=== PATIENT | male | born 1960 | race Caucasian/White ===

== ENCOUNTER 2021-02-20 20:45 | Emergency (ER) | payer OTHER ==
--- OUTSIDE RECORDS SUMMARY | 2021-02-20 20:49 | XMS REPORT | Continuity of Care Document ---
:1960 Author Organization [facility] t Address 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 History of History of Problem Resolve Univers hyperlipid hyperlipid d it y of [place] Physici ans History of History of Problem Resolve Univers hypertensi hypertensi d it y of on on [place] Physici ans History of History of Problem Resolve Univers neuropathy neuropathy d it y of [place] Physici ans Weakness Weakness Problem Active Unive rs of both of both ity of [place] extremitie extremitie Ph ysici s s ans Subjective Subjective Problem Active U nivers muscle muscle ity of weakness weakness [place] Physici ans Allergies, Adverse Reactions, Alerts Allergy Allergy Status Severity Reaction(s) Onset Inactive Treating Comm ents Source Name Type Date Date Clinician [place] drug Active Univers Inhibito allergy ity of rs [place] Physici ans codeine drug Active Univers allergy ity of [place] Physici ans Levaquin drug Active Univers allergy ity of [place] Physici ans Family History Family Member Diagnosis Comments Start Date Stop Date Source Mother Family history of Univers ity of [place] Patient denies Physicians medical problems Father Family history of Univers ity of [place] Patient denies Physicians medical problems Social History Social Habit Start Date Stop Date Quantity Comments Source Sex Assigned At [birth year] [facility] 00:00:00 00:00:00 Smoking Status Start Date Stop Date Source Never smoker [facility] Physicians Unknown if ever smoked [facility] Medications This patient has no known medications. Vital Signs Vital Name Observation Time Observation Value Comments Source BP Systolic 2018-09-01 139 mm[Hg] Location: [facility] 14:13:00 Position: [place] Physician s Sitting BP Diastolic 2018-09-01 89 mm[Hg] Location: [facility] 14:13:00 Position: [place] Physician s Sitting Height 2018-09-01 71 [in_us] [facility] 14:13:00 [place] [facility] s Weight 2018-09-01 217.6 [lb_av] [facility] 14:13:00 [place] [facility] Body Mass Index 2018-09-01 30.35 kg/m2 [facility] Calculated 14:13:00 [place] [facility] Temperature 2018-09-01 97.5 [degF] Method: Oral [facility] 14:13:00 [place] [facility] Heart Rate 2018-09-01 70 /min [facility] 14::00 [place] [facility] Procedures Procedure Date / Time Performed Performing Clinician Sourc e [QLH] C-REACTIVE 2018-09-01 00:00:00 [facility] PROTEIN Physicians [[facility]] CREATINE KINASE, 2018-09-01 00:00:00 [facility] TOTAL Physicians [[facility]] SED RATE BY 2018-09-01 00:00:00 [facility] MODIFIED AYAAN Physicians History of Coronary [facility] [place] artery bypass graft Physicians Plan of Care Planned Activity Planned Date Details Comments Source Future Scheduled Test COVID-19 VACCINE (1) [facility] [code = COVID-19 VACCINE (1)] Future Scheduled Test Hepatitis C screening [facility] (procedure) [code = [id number]] Future Scheduled Test COLONOSCOPY SCREENING [facility] [code = COLONOSCOPY SCREENING] Future Scheduled Test SHINGLES VACCINES (#1) [facility] [code = SHINGLES VACCINES (#1)] Future Scheduled Test INFLUENZA VACCINE [code [facility] = INFLUENZA VACCINE] Encounters Start End Encounter Admission Attending Care Care Encounter Source Date/Time Date/Time Type Type Clinicians Facility Department ID 2018-12-27 2018-12-27 Outpatient U [facility] [id number] [facility] 14:50:00 14:50:00 2018-09-01 2018-09-01 Appointmen CURTIS DUNHAM Neurology [id number] Univers 14:00:00 14:00:00 t; MELISSA DUNHAM ity of Rudy TORRES M.D. Physici ans Results Test Description Test Time Test Comments Results Result Comments Source CBC with Differential 2017-04-10 01:19:00 Test Item Value Reference Range Interpretation Comme nts WBC (test code = WBC) 5.8 K/cumm 4.4-10.5 N RBC (test code = RBC) 4.59 M/cumm 4.10-5.70 N Hemoglobin (test code = HGB) 13.9 gm/dL 13.4-17.4 N Hematocrit (test code = HCT) 45.7 % 38.7-52.0 N MCV (test code = MCV) 99.7 fL 80-100 N MCH (test code = MCH) 30.4 pg 27.0-32.5 N MCHC (test code = MCHC) 30.5 g/dL 32.0-37.5 L RDW (test code = RDW) 14.5 % 11.5-14.5 N Platelet Count (test code = PLTCT) 201 K/cumm 140-440 N MPV (test code = MPV) 10.2 fL Diff Method (test code = DIFFM) Manual Neutrophil (test code = NEUT) 56.9 % 36-70 N Lymphocyte (test code = LYMPH) 24.4 % 12-44 N Monocyte (test code = MONO) 16.3 % 0-11 N Eosinophil (test code = EOS) 1.8 % 0-7 N Basophil (test code = BASO) 0.7 % 0-2 N Neutro Abs (test code = ANEUT) 3.30 K/cumm 1.6-7.4 N Lymph Abs (test code = ALYMPH) 1.4 K/cumm 0.5-4.6 N [place] Abs (test code = AMONO) 0.94 K/cumm 0.0-1.2 N Eos Abs (test code = AEOS) 0.10 K/cumm 0.00-0.74 N Baso Abs (test code = ABASO) 0.04 K/cumm 0.00-0.21 N RBC Morphology (test code = RBCMRPH) Not Indicated Platelet Est (test code = PLTEST) Adequate Platelets on Smear Testosterone, [id number] 23:24:00 Test Item Value Reference Range Interpretation Comments Testosterone, Total (test code = 2.12 ng/mL 2.80-8.00 L TESTOS) Thyroid Stimulating Hormone (TSH)2017-04-09 23:24:00 Test Item Value Reference Range Interpretation Comments TSH (test code = TSH) 1.90 mIU/mL 0.270-4.200 N Comprehensive Metabolic [id number] 23:16:00 Test Item Value Reference Range Interpretation Comments Sodium (test code = 138 mmol/L 135-145 N NA) Potassium (test 3.9 mmol/L 3.5-5.1 N code = K) Chloride (test code 104 mmol/L 98-105 N = CL) Carbon Dioxide 21 mmol/L 22-29 L (test code = CO2) Glucose (test code 144 mg/dL 70-115 H = GLU) Blood Urea Nitrogen 16 mg/dL 6-20 N (test code = BUN) Creatinine (test 1.1 mg/dL 0.7-1.2 N code = CREAT) Calcium (test code 8.8 mg/dL 8.3-10.5 N = CA) Prot Total (test 6.3 g/dL 6.4-8.3 L code = TP) Albumin (test code 4.2 g/dL 3.5-5.2 N = ALB) A/G Ratio (test 2.0 Ratio code = AGRATIO) Globulin (test code 2.1 2.9-3.1 L = GLOB) Bili Total (test 0.3 mg/dL 0.1-0.9 N code = TBIL) Alk Phos (test code 106 U/L 40-129 N = APHOS) AST (test code = 19 U/L 1-40 N AST) ALT (test code = 16 U/L 1-41 N ALT) BUN/Creatinine 14.5 Ratio (test code = BCRATIO) Anion Gap (test 13 mmol/L 7-16 N code = AGAP) Estimated GFR (test >60 eGFR (es timated code = GFR) mL/min/1.73m2 Glomerular Arsenio tration Rate) is an est imated value,calculate d from the patient's s matthew creatinine usin g the MDRD equation.I t is NOT the patient 's actual GFR. The eGFR provides a more clinicallyusefu l measure of kidn ey disease than se rum creatinine alone.This calculation judit es sex and race into account, if the informationis provided. If th e race is not provided , and the patient isAfrican-Ameri can, multiply by 1.2 12. If sex is not prov ided, and thepatient is female, multipl y by 0.742. Results for patients <18 ye ars ofage have not been validated by e MDRD study and paolo d be interpretedwith caution.eGFR Re sult Interpretation: eGFR > or = 60 is in t he Normal RangeeGF R < 60 may mean kidney diseaseeGFR < 1 5 may mean kidney failureRange s recommended by the National Kidney Foundation,http ://nkd ep.nih.gov Lipid [id number] 21:47:00 Test Item Value Reference Range Interpretation Comments Cholesterol (test 183 mg/dL 0-200 N code = CHOL) Triglycerides (test 135 mg/dL 9-200 N code = TRIG) HDL (test code = 51 mg/dL 40-60 N HDL) Chol/HDL (test code 3.6 Ratio 0.0-5.0 N = CHOLPHDL) LDL, Calculated 105 mg/dL 0-130 N (NOTE)RISK O F HEART (test code = LDLC) DISEASEPu blished by [place] Heart AssociationAnal yte Optim al Boderline Increased RiskC HOL <200 200-239 >240TRI G <150 150-199 >200HDL Male: >60 <40HDL Female: >60 <50 LDL < 100 130-15 9 >160 LDL NEAR OPTIMAL IS 100- 129 VLDL (test code = 27 mg/dL 5-40 N VLDL) LDL/HDL (test code = 2 LDLPHDL) Sed Rate ESR ([place])2016-10-15 01:06:00 Test Item Value Reference Range Interpretation Comments ESR (test code = HESR) 4 mm/Hr 0-9 N Thyroid Stimulating Hormone (TSH)2016-10-15 00:33:00 Test Item Value Reference Range Interpretation Comments TSH (test code = TSH) 2.01 mIU/mL 0.270-4.200 N CK [id number] 00:33:00 Test Item Value Reference Range Interpretation Comments CK (test code = CK) 64 U/L 39-308 N CKMB (test code = CKMB) 2.2 ng/mL 0.0-4.9 N CKMB% (test code = CKMBP) 3.4 % 0.0-3.4 N CK [id number] 00:22:00 Test Item Value Reference Range Interpretation Comments CK (test code = CK) 64 U/L 39-308 N
--- NOTE | 2021-02-20 22:25 | RAD REPORT ---
EXAM DESCRIPTION: RAD - Chest Single View - 02/20/2021 10:00 pm CLINICAL HISTORY: pale, hypotensive COMPARISON: Chest Pa And Lat (2 Views) dated 10/05/2015 FINDINGS: Lines: None. Lungs: No evidence of edema or pneumonia. Pleural: No significant pleural effusions or pneumothorax. Cardiac: The heart size is within normal limits. Bones: No acute fractures. Sternotomy. Other: Surgical clips in left upper quadrant. IMPRESSION: No acute cardiopulmonary disease.
[2021-02-20] MEDS ORDERED: ACETAMINOPHEN 500 MG TAB ONE (22:42)
[2021-02-20] MEDS ORDERED: NA CHLORIDE 0.9% 1,000 ML ONE (22:44)
[2021-02-20 23:31] LABS: Absolute Lymphocytes (CBC) 0.4 K/uL (0.7-4.9); Basophils % 0.2 % (0-1.3); Hematocrit 38.4 % (39.6-49.0); Lymphocytes % 3.2 % (15.3-44.8); MPV 8.9 fL (7.6-11.3); RBC Red Blood Cell Count 4.45 M/uL (4.33-5.43)
[2021-02-20 23:33] LABS: Protime INR 1.21
[2021-02-20 23:42] LABS: Albumin 3.7 g/dL (3.4-5.0); Alkaline Phosphatase 273 U/L (45-117); BUN Blood Urea Nitrogen 23 mg/dL (7-18); Bicarbonate 23 mmol/L (21-32); Bilirubin Direct 2.5 mg/dL (0-0.2); Bilirubin Total 3.5 mg/dL (0.2-1.0); Glucose Level 158 mg/dL (74-106); Magnesium 1.5 mg/dL (1.8-2.4); NT PRO-BNP 861 pg/mL (<125); Potassium 3.9 mmol/L (3.5-5.1); Protein, Total 7.3 g/dL (6.4-8.2); Sodium Level 134 mmol/L (136-145); Troponin (Emerg Dept Use Only) < 0.02 ng/mL (0.0-0.045)
[2021-02-20 23:46] LABS: ALT/SGPT 425 U/L (12-78); AST/SGOT 438 U/L (15-37)
[2021-02-21] MEDS ORDERED: NA CHLORIDE 0.9% 1,000 ML ONE ×2 (00:26→03:16)
[2021-02-21] MEDS ORDERED: Magnesium Sulfate 2gm IVPB 2 G/50 ML BAG IV ONE (00:26)
[2021-02-21] MEDS ORDERED: PIPER/TAZO/NS 3.375gm 3.375 GM/100 ML BAG ONE (01:29)
--- NOTE | 2021-02-21 02:45 | ER ---
Nurse's Notes [facility] Name: Luis Menjivar Age: 60 yrs Sex: Male : 1960 Arrival Date: 02/20/2021 Time: 20:50 Bed 19 Private MD: Diagnosis: Calculus of bile duct with acute cholecystitis with obstruction;Fever presenting with conditions classified elsewhere Presentation: 02/20 21:11 Chief complaint: Patient states: Pt states he has neuropathy and has pain in his wg shoulders, ankles and other joints. States he was taken off his medication and has been feeling this way for 2 weeks. Pt states he also received 3 units of blood several months ago for GI bleeding. Pt reports no S/S of bleeding but appears pale. Coronavirus screen: Vaccine status: Patient reports receiving the 2nd dose of the covid vaccine. Date January 07, 2021 Client denies travel out of the [place] in the last 14 days. At this time, the client does not indicate any symptoms associated with coronavirus-19. Ebola Screen: Patient negative for fever greater than or equal to 101.5 degrees Fahrenheit, and additional compatible Ebola Virus Disease symptoms Patient denies exposure to infectious person. Patient denies travel to an Ebola-affected area in the 21 days before illness onset. No symptoms or risks identified at this time. Risk Assessment: Do you want to hurt yourself or someone else? Patient reports no desire to harm self or others. 21:11 Method Of Arrival: Ambulatory 21:11 Acuity: MADDIE 3 Triage Assessment: 21:17 The onset of the patients symptoms was February 04, 2021 at 12:00. General: Appears wg uncomfortable, well developed, well nourished, Behavior is calm, cooperative, appropriate for age. Pain: Pain currently is 7 out of 10 on a pain scale. Quality of pain is described as aching, Pain began 2 weeks ago. EENT: No deficits noted. Neuro: Reports pain in his joints.. Cardiovascular: skin cool and pale. Respiratory: No deficits noted. GI: No deficits noted. : No deficits noted. Derm: No deficits noted. Musculoskeletal: No deficits noted. Historical: - Allergies: 02/21 02:25 Levaquin; jb4 02:25 [place] INHIBITORS; jb4 - PMHx: 02:25 HTN; cardiac problems; hernia; VKH; neuropathy; jb4 - PSHx: 02:25 hernia repair; triple bypass; jb4 Screenin/08 22:30 Abuse screen: Denies threats or abuse. Nutritional screening: No deficits noted. jb4 Tuberculosis screening: No symptoms or risk factors identified. Fall Risk IV access (20 points). Ambulatory Aid- None/Bed Rest/Nurse Assist (0 pts). Gait- Weak (10 pts.). Mental Status- Oriented to own ability (0 pts). Total Larson Fall Scale indicates Low Risk Score (25-44 pts). Fall prevention measures have been instituted. Side Rails Up X 2 Placed close to Nursing Station Frequent Obs/Assesments occuring Family Present and informed to notify staff if they need to leave bedside As available Patient and Family Educated on Fall Prevention Program and strategies. Assessment: 22:30 General: Appears in no apparent distress. comfortable, Behavior is calm, cooperative. jb4 Pain: Denies pain. Neuro: Level of Consciousness is awake, alert, obeys commands, Oriented to person, place, time, situation. Cardiovascular: Patient's skin is warm and dry. Respiratory: Airway is patent Respiratory effort is even, unlabored, Respiratory pattern is regular, symmetrical. GI: Abdomen is flat, non-distended. : No signs and/or symptoms were reported regarding the genitourinary system. EENT: No signs and/or symptoms were reported regarding the EENT system. Derm: Skin is intact, Skin is dry, Skin is jaundiced, pale. Musculoskeletal: Circulation, motion, and sensation intact. Range of motion: intact in all extremities. 02/21 00:00 Reassessment: Patient appears in no apparent distress at this time. Patient and/or jb4 family updated on plan of care and expected duration. Pain level reassessed. Patient is alert, oriented x 3, equal unlabored respirations, skin warm/dry/pink. 01:00 Reassessment: Patient appears in no apparent distress at this time. Patient and/or jb4 family updated on plan of care and expected duration. Pain level reassessed. Patient is alert, oriented x 3, equal unlabored respirations, skin warm/dry/pink. 02:00 Reassessment: Patient appears in no apparent distress at this time. Patient and/or jb4 family updated on plan of care and expected duration. Pain level reassessed. Patient is alert, oriented x 3, equal unlabored respirations, skin warm/dry/pink. 03:32 Reassessment: Patient appears in no apparent distress at this time. Patient and/or jb4 family updated on plan of care and expected duration. Pain level reassessed. Patient is alert, oriented x 3, equal unlabored respirations, skin warm/dry/pink. Vital Signs: 02/20 21:11 BP 97 / 65; Pulse 120; Resp 18; Temp 98.8; Pulse Ox 99% on R/A; Weight 81.65 kg; Height wg 5 ft. 11 in. (180.34 cm); Pain 7/10; 22:23 BP 91 / 56; Pulse 112; Resp 18 S; Temp 100.2(O); Pulse Ox 98% on R/A; bb 23:30 BP 94 / 65; Pulse 96; Resp 16; Pulse Ox 98% on R/A; jb4 02/21 00:15 BP 89 / 60; Pulse 92; Resp 18; Pulse Ox 98% on R/A; jb4 01:26 BP 97 / 69; Pulse 90; Resp 15; Pulse Ox 100% on R/A; mw2 01:35 Temp 98.6(O); jb4 02:30 BP 105 / 66; Pulse 88; Resp 16; Pulse Ox 99% on R/A; jb4 03:00 BP 97 / 66; Pulse 84; Resp 16; Pulse Ox 99% on R/A; jb4 02/20 21:11 Body Mass Index 25.10 (81.65 kg, 180.34 cm) ED Course: 02/20 20:50 Patient arrived in ED. bp1 21:17 Triage completed. wg 21:17 Arm band placed on left wrist. wg 22:00 XRAY Chest (1 view) In Process Unspecified. EDMS 22:24 Larry Darnell PA is PHCP. jr8 22:24 Jose Guillen MD is Attending Physician. jr8 22:30 Patient has correct armband on for positive identification. Bed in low position. Call jb4 light in reach. Side rails up X 1. Pulse ox on. NIBP on. 22:45 Inserted saline lock: 18 gauge in right forearm, using aseptic technique. Blood jb4 collected. 22:45 Initial lab(s) drawn, by nj, sent to lab. First set of blood cultures drawn by me, jb4 Second set of blood cultures drawn by me. 23:12 Bautista Cantu, RN is Primary Nurse. jb4 02/21 00:44 CT Abd/Pelvis - Without Contrast In Process Unspecified. EDMS 01:12 US Abdomen Limited In Process Unspecified. EDMS 01:20 initiated a transfer with Helene Meléndez from [facility]. mw2 01:57 connected Larry CARRASCO with the doctor from [facility]. mw2 02:24 connected Larry CARRASCO with Dr. Hernandes from [facility]. mw2 02:34 administrative approval given by Helene Meléndez/ patient has been accepted to [address] 10 tower bed 1042/ Dr. Hernandes accepted the patient in transfer/ report to be called to [phone]. 03:32 No provider procedures requiring assistance completed. Patient transferred, IV remains jb4 in place. Administered Medications: 02/20 22:23 Drug: Tylenol 1000 mg Route: PO; bb 22:50 Drug: NS 0.9% 1000 ml Route: IV; Rate: 1000 ml; Site: right forearm; jb4 23:45 Follow up: Response: No adverse reaction; IV Status: Completed infusion; IV Intake: jb4 1000ml 02/21 00:10 Drug: NS 0.9% 1000 ml Route: IV; Rate: 1000 ml; Site: right forearm; jb4 01:10 Follow up: Response: No adverse reaction; IV Status: Completed infusion; IV Intake: jb4 1000ml 00:10 Drug: Magnesium Sulfate 2 grams Route: IVPB; Infused Over: 1 hrs; Site: right forearm; jb4 01:10 Follow up: Response: No adverse reaction; IV Status: Completed infusion; IV Intake: [id number] 01:34 Drug: Zosyn (piperacillin-tazobactam) 3.375 grams Route: IVPB; Infused Over: 60 mins; jb4 Site: right antecubital; 02:34 Follow up: Response: No adverse reaction; IV Status: Completed infusion; IV Intake: jb4 100ml 03:04 Drug: NS 0.9% 1000 ml Route: IV; Rate: 100 ml/hr; Site: right forearm; jb4 03:11 Follow up: Response: No adverse reaction; IV Status: Infusion continued upon transfer jb4 Intake: 02/20 23:45 IV: 1000ml; Total: 1000ml. jb4 02/21 01:10 IV: 50ml; Total: 1050ml. jb4 01:10 IV: 1000ml; Total: 2050ml. jb4 02:34 IV: 100ml; Total: 2150ml. jb4 Outcome: 02:45 ER care complete, transfer ordered by MD. bishop 03:33 Transferred by ground EMS to [facility], Transfer form completed. jb4 X-rays sent w/ patient. 03:33 Condition: stable 03:33 Discharge instructions given to patient, family, Instructed on the need for transfer, Demonstrated understanding of instructions. 03:35 Patient left the ED. jb4 Signatures: Dispatcher [employer] EDMS Page Wright RN RN bb Roszak, Josh, PA PA jr8 Bautista Cantu RN RN jb4 Rajendra Urbina mw2 Raiza Dinero Liam, RN wg Corrections: (The following items were deleted from the chart) 02:37 02:24 connected Larry CARRASCO with Dr. Guzmán from [facility] mw2 mw2 03:35 03:35 Initial Sepsis Screen: Does the patient meet any 2 criteria? jb4 jb4 03:35 03:32 Discharged to home ambulatory, jb4 jb4 03:35 03:32 Condition: stable jb4 jb4 03:35 03:32 Discharge instructions given to patient, Instructed on discharge instructions, jb4 follow up and referral plans. Demonstrated understanding of instructions, follow-up care, jb4 03:38 03:32 IV discontinued, intact, bleeding controlled, No redness/swelling at site. jb4 Pressure dressing applied, jb4
--- NOTE | 2021-02-21 02:46 | EDPHYS ---
Physician Documentation [facility] Name: Luis Menjivar Age: 60 yrs Sex: Male : 1960 Arrival Date: 02/20/2021 Time: 20:50 Bed 19 Private MD: ED Physician Jose Guillen HPI: 02/21 00:54 This 60 yrs old Male presents to ER via Ambulatory with complaints of jr8 Weakness. 00:54 This is a 60-year-old male patient that presented to the emergency room for fevers, jr8 fatigue and weakness, nausea and upper abdominal discomfort. Patient stated that this is been going on for the past week or 2 but getting worse and now running fevers with it. Also has complained of body aches. Patient stated that he has had GI bleed in the past and had to have blood transfusion. Denies having any recent hematemesis, coffee-ground emesis, black tarry stools.. It is unknown whether or not the patient has had similar symptoms in the past. The patient has not recently seen a physician. Historical: - Allergies: 02:25 Levaquin; jb4 02:25 [place] INHIBITORS; jb4 - PMHx: 02:25 HTN; cardiac problems; hernia; VKH; neuropathy; jb4 - PSHx: 02:25 hernia repair; triple bypass; jb4 ROS: 00:54 Cardiovascular: Negative for chest pain, palpitations, and edema, Respiratory: Negative jr8 for shortness of breath, cough, wheezing, and pleuritic chest pain, Back: Negative for injury and pain, MS/Extremity: Negative for injury and deformity, Skin: Negative for injury, rash, and discoloration, Neuro: Negative for headache, weakness, numbness, tingling, and seizure. 00:54 Constitutional: Positive for body aches, fever, malaise. 00:54 Abdomen/GI: Positive for abdominal pain, nausea. Exam: 00:54 Eyes: Pupils equal round and reactive to light, extra-ocular motions intact. Lids and jr8 lashes normal. Conjunctiva and sclera are non-icteric and not injected. Cornea within normal limits. Periorbital areas with no swelling, redness, or edema. ENT: Nares patent. No nasal discharge, no septal abnormalities noted. Tympanic membranes are normal and external auditory canals are clear. Oropharynx with no redness, swelling, or masses, exudates, or evidence of obstruction, uvula midline. Mucous membranes moist. Neck: Trachea midline, no thyromegaly or masses palpated, and no cervical lymphadenopathy. Supple, full range of motion without nuchal rigidity, or vertebral point tenderness. No Meningismus. Cardiovascular: Tachycardic with a normal S1 and S2. No gallops, murmurs, or rubs. Normal PMI, no JVD. No pulse deficits. Respiratory: Lungs have equal breath sounds bilaterally, clear to auscultation and percussion. No rales, rhonchi or wheezes noted. No increased work of breathing, no retractions or nasal flaring. 00:54 Back: No spinal tenderness. No costovertebral tenderness. Full range of motion. MS/ Extremity: Pulses equal, no cyanosis. Neurovascular intact. Full, normal range of motion. Neuro: Awake and alert, GCS 15, oriented to person, place, time, and situation. Cranial nerves II-XII grossly intact. Motor strength 5/5 in all extremities. Sensory grossly intact. 00:54 Constitutional: The patient appears alert, awake, Ill appearing 00:54 Abdomen/GI: Inspection: scar(s), are noted in the Mid abdomen, Bowel sounds: active, all quadrants, Palpation: soft, in all quadrants, mild abdominal tenderness, in the right upper quadrant and left upper quadrant, mass, is not appreciated, rebound tenderness, is not appreciated, voluntary guarding, is not appreciated, involuntary guarding, is not appreciated, no appreciated organomegaly, Indicators: McBurney's point is not tender, Bucio's sign is negative, Rovsing's sign is negative, Liver: tenderness, is not appreciated. 00:54 Skin: Appearance: Color: pale. Vital Signs: 02/20 21:11 BP 97 / 65; Pulse 120; Resp 18; Temp 98.8; Pulse Ox 99% on R/A; Weight 81.65 kg; Height wg 5 ft. 11 in. (180.34 cm); Pain 7/10; 22:23 BP 91 / 56; Pulse 112; Resp 18 S; Temp 100.2(O); Pulse Ox 98% on R/A; bb 23:30 BP 94 / 65; Pulse 96; Resp 16; Pulse Ox 98% on R/A; jb4 02/21 00:15 BP 89 / 60; Pulse 92; Resp 18; Pulse Ox 98% on R/A; jb4 01:26 BP 97 / 69; Pulse 90; Resp 15; Pulse Ox 100% on R/A; mw2 01:35 Temp 98.6(O); jb4 02:30 BP 105 / 66; Pulse 88; Resp 16; Pulse Ox 99% on R/A; jb4 03:00 BP 97 / 66; Pulse 84; Resp 16; Pulse Ox 99% on R/A; jb4 02/20 21:11 Body Mass Index 25.10 (81.65 kg, 180.34 cm) wg MDM: 02/20 22:26 Patient medically screened. 8 02/21 02:01 Data reviewed: vital signs, nurses notes, lab test result(s), radiologic studies, CT jr8 scan, plain films, ultrasound. Data interpreted: Pulse oximetry: on room air is 100 %. Interpretation: normal. Counseling: I had a detailed discussion with the patient and/or guardian regarding: the historical points, exam findings, and any diagnostic results supporting the discharge/admit diagnosis, lab results, radiology results, the need to transfer to another facility, [facility] does not immediately have the required specialist. ED course: Patient with choledocholithiasis, cholelithiasis, fever with upper quadrant pain and elevated liver enzymes. Patient has been placed on antibiotics and resuscitated with fluids. Feeling much better at this time. Discussed with patient that we do not have the ability to do ERCP at this time which is needed. I consulted GI at [facility] who accepted patient.. 02/20 21:21 Order name: Basic Metabolic Panel 02/20 21:21 Order name: CBC with Diff 02/20 21:21 Order name: LFT's 02/20 21:21 Order name: Magnesium; Complete Time: 23:49 02/20 21:21 Order name: NT PRO-BNP; Complete Time: 23:49 02/20 21:21 Order name: Troponin (emerg Dept Use Only); Complete Time: 23:49 02/20 21:22 Order name: Basic Metabolic Panel; Complete Time: 23:49 EDWA 02/20 21:22 Order name: CBC with Automated Diff; Complete Time: 23:49 EDWA 02/20 21:22 Order name: Liver (Hepatic) Function; Complete Time: 23:49 [facility] 02/20 22:25 Order name: Blood Culture Adult (2) [facility] 02/20 22:25 Order name: C-Reactive Protein [facility] 02/20 22:25 Order name: Fibrinogen; Complete Time: 23:49 [facility] 02/20 22:25 Order name: Lactate; Complete Time: 23:49 [facility] 02/20 21:21 Order name: XRAY Chest (1 view); Complete Time: 22:31 02/20 22:25 Order name: Procalcitonin; Complete Time: 00:37 [facility] 02/20 22:25 Order name: Ptt, Activated; Complete Time: 23:49 [facility] 02/20 22:26 Order name: Blood Culture [facility] 02/20 23:05 Order name: C-Reactive Protein; Complete Time: 23:49 [facility] 02/20 23:05 Order name: Protime (+INR); Complete Time: 23:49 [facility] 02/20 23:32 Order name: Glucose, Ancillary Testing; Complete Time: 23:49 [facility] 02/20 23:57 Order name: CT Abd/Pelvis - Without Contrast [facility] 02/21 00:01 Order name: SARS-COV-2 RT PCR; Complete Time: 00:10 [facility] 02/21 00:10 Order name: US Abdomen Limited [facility] 02/21 03:06 Order name: Lactate Sepsis 2 HR Follow-up [facility] 02/20 21:21 Order name: EKG; Complete Time: 21:22 02/20 21:21 Order name: Cardiac monitoring; Complete Time: 23:50 02/20 21:21 Order name: EKG - Nurse/Tech; Complete Time: 23:50 02/20 21:21 Order name: IV Saline Lock; Complete Time: 22:54 02/20 21:21 Order name: Labs collected and sent; Complete Time: 22:54 02/20 21:21 Order name: O2 Per Protocol; Complete Time: 22:54 02/20 21:21 Order name: O2 Sat Monitoring; Complete Time: 22:54 02/20 22:25 Order name: Accucheck; Complete Time: 23:43 [facility] 02/20 22:25 Order name: IV Saline Lock - Large Bore; Complete Time: 22:55 8 Administered Medications: 02/20 22:23 Drug: Tylenol 1000 mg Route: PO; bb 22:50 Drug: NS 0.9% 1000 ml Route: IV; Rate: 1000 ml; Site: right forearm; jb4 23:45 Follow up: Response: No adverse reaction; IV Status: Completed infusion; IV Intake: jb4 1000ml 02/21 00:10 Drug: NS 0.9% 1000 ml Route: IV; Rate: 1000 ml; Site: right forearm; jb4 01:10 Follow up: Response: No adverse reaction; IV Status: Completed infusion; IV Intake: jb4 1000ml 00:10 Drug: Magnesium Sulfate 2 grams Route: IVPB; Infused Over: 1 hrs; Site: right forearm; jb4 01:10 Follow up: Response: No adverse reaction; IV Status: Completed infusion; IV Intake: [id number] 01:34 Drug: Zosyn (piperacillin-tazobactam) 3.375 grams Route: IVPB; Infused Over: 60 mins; jb4 Site: right antecubital; 02:34 Follow up: Response: No adverse reaction; IV Status: Completed infusion; IV Intake: jb4 100ml 03:04 Drug: NS 0.9% 1000 ml Route: IV; Rate: 100 ml/hr; Site: right forearm; jb4 03:11 Follow up: Response: No adverse reaction; IV Status: Infusion continued upon transfer jb4 Disposition: 06:25 Co-signature as Attending Physician, Jose Guillen MD I agree with the assessment and rn plan of care. Attestation: The patient's history, exam findings, diagnostics, and a summary of any interventions or procedures was reviewed in detail with Larry CARRASCO. Disposition Summary: 02/21/21 02:45 Transfer Ordered Transfer Location: [facility] jr8 Reason: Higher level of care jr8 Condition: Stable jr8 Problem: new jr8 Symptoms: have improved jr8 Accepting Physician: Dr. Hernandes (02/21/21 03:35) jb4 Diagnosis - Calculus of bile duct with acute cholecystitis with obstruction jr8 - Fever presenting with conditions classified elsewhere jr8 Forms: - Medication Reconciliation Form jr8 - SBAR form jr8 Signatures: Dispatcher [employer] EDMS Wright, PageVICTOR M RN, Roman, MD MD rn Roszak, Josh, PA PA jr8 Bautista Cantu RN RN jb4 Kyle Gallagher RN wg Corrections: (The following items were deleted from the chart) 02/20 23:03 21:22 PROTIME (+INR)+COAG.LAB.BRZ ordered. EDMS EDMS 23:03 22:26 C-Reactive Protein ordered. EDMS EDMS 23:05 22:26 CORONAVIRUS+MR.LAB.BRZ ordered. EDMS EDMS 02/21 00:55 00:54 This is a 60-year-old male patient that presented to the emergency room for jr8 fevers, fatigue and weakness, nausea and upper abdominal discomfort. Patient stated that he has had GI bleed in the past and had to have blood transfusion. Denies having any recent hematemesis, coffee-ground emesis, black tarry stools.. jr8 02:40 02:00 LACTATE+C.LAB.BRZ ordered. EDMS EDMS 03:13 02/20 22:25 Urine Dipstick-Ancillary ordered. 8 jb4 02/21 03:35 02:45 Dr. Hernandes 8 jb4
[2021-02-21 03:49] VITALS: TEMP 98.6
[2021-02-21 03:51] VITALS: O2SAT 99
[2021-02-21 03:52] VITALS: BP 97/66
--- NOTE | 2021-02-21 07:52 | RAD REPORT ---
EXAM DESCRIPTION: US - Abdomen Exam Limited - 02/21/2021 1:12 am CLINICAL HISTORY: r/o Liver and GB;Abd pain COMPARISON: No comparisons FINDINGS: Multiple variably sized mobile gallstones are identified. No pericholecystic fluid seen. G allbladder wall thickness is upper normal at 3 mm. No common duct stone or biliary tree dilatation identified. Partially imaged liver shows fatty infiltration pattern. No gross abnormalities of the partially imag ed liver and spleen. IMPRESSION: Multi stone cholelithiasis with upper normal gallbladder wall thickness. No duct stone, biliary tree dilatation or pericholecystic fluid. Fatty infiltration of a partially imaged liver.
--- NOTE | 2021-02-21 11:52 | RAD REPORT ---
EXAM DESCRIPTION: CT - Abdomen Pelvis Wo Contrast - 02/21/2021 6:23 am CLINICAL HISTORY: Elevated LFTs. Renal dysfunction;Abd pain. COMPARISON: None. TECHNIQUE: Serial axial CT images were obtained from above the diaphragm through the pubic symphysis without administration of intravenous or oral contrast. All CT scans are performed using dose optimization techniques as appropriate, including automated exp osure control and/or standardized protocols, where dose is adjusted for indication for exam and body habitus. FINDINGS: Thoracic: No significant abnormality. Hepatobiliary: Diffuse hepatic steatosis. No obvious concerning hepatic lesion identified in the abse nce of intravenous contrast. Numerous calcified gallstones in the gallbladder. No gallbladder wall th ickening or surrounding inflammatory changes. Tiny calcified stone versus stacked stones in the dista l common bile duct at the level of the ampulla, measuring 0.6 x 0.2 cm (coronal series 202, image 53) . Mildly prominent common bile duct, measuring up to 0.9 cm in diameter. No intrahepatic biliary duct al dilatation identified. Pancreas: Unremarkable. Spleen: Unremarkable. Gastrointestinal: Numerous surgical clips about the gastroesophageal junction and gastric fundus, pos sibly from prior García fundoplication. No hiatal hernia is identified. No evidence of bowel obstruct ion or perienteric inflammation. The appendix is normal. Mild left colonic diverticulosis. Small amou nt of fecal material throughout the colon. Adrenals: No abnormality identified in either adrenal gland. Renal: Trace bilateral perinephric fat stranding. No obvious parenchymal abnormality in either kidney in the absence of intravenous contrast. No hydronephrosis or urolithiasis. Bladder/Reproductive: Unremarkable appearance of the urinary bladder by CT technique. Vascular/Lymphatics: No lymphadenopathy identified by CT size criteria. Trace calcific atherosclerosi s. Abdominal aorta is normal in caliber. Musculoskeletal: No concerning osseous lesion identified. Mild bilateral gynecomastia. Osteopenia. Mo derate lumbar spine degenerative changes. Tiny fat-containing supraumbilical hernia with no associate d inflammatory changes. Fluid / peritoneum: No significant free fluid. No free intraperitoneal air identified. IMPRESSION: 1. Choledocholithiasis, with a thin calcified stone versus tiny stacked stones in the distal common bile duct. Mildly prominent common bile duct diameter (0.9 cm). No intrahepatic biliary ductal dilatation identified. 2. Cholelithiasis with no CT evidence of acute cholecystitis. 3. Diffuse hepatic steatosis. 4. Trace bilateral perinephric fat stranding. No hydronephrosis or urolithiasis. Electronically signed by: Bia Weaver MD 02/21/2021 1:00 AM CDT Due to temporary technical issues with the PACS/Fluency reporting system, reports are being signed by the in house radiologist without review as a courtesy to ensure prompt reporting. The interpreting r adiologist is fully responsible for the content of the report.
== END 2021-02-21 03:35 | disposition short-term general hospital (02) ==
LOC: ER 20:45
DX: K80.43 Calculus of bile duct with acute cholecystitis with obstruction (principal); R50.9 Fever, unspecified; I10 Essential (primary) hypertension; G62.9 Polyneuropathy, unspecified; Z20.822 Contact with and (suspected) exposure to COVID-19; Z95.1 Presence of aortocoronary bypass graft; Z88.3 Allergy status to other anti-infective agents; Z88.8 Allergy status to other drugs, medicaments and biological substances
CPT/HCPCS: 93005; 87040 ×2; 85025; 80048; 36415; 85384; 83735; 87205 ×3; 85610; 82947; 80076; 83605 ×2; 85730; 87077 ×2; 87186 ×2; 84484; 84145; 83880; 86140; 74176; 71045; 76705; 99285; U0003; J2543; J3475; J7030 ×3